=== PATIENT | male | born 1965 | race Caucasian/White ===

== ENCOUNTER 2016-08-24 12:33 | Day surgery (SDC) | payer OTHER ==
[~2016-08-24] VITALS: Ht 182.9 cm; Wt 81.0 kg
[2016-08-24 13:31] VITALS: Ht 182.9 cm; Wt 81.0 kg
[2016-08-24] MEDS ORDERED: OMEPRAZOLE (13:35)
[2016-08-24 13:41] VITALS: BP 109/70; PULSE 60; RESP 15
[2016-08-24] MEDS ORDERED: LIDOCAINE 4% SOLUTION 50 ML BTL ONE (13:46)
[2016-08-24 14:32] VITALS: BP 103/78; RESP 20
[2016-08-24] MEDS ORDERED: MIDAZOLAM 1 MG/ML 2 ML INJ ONE ×2 (15:24)
[2016-08-24] MEDS ORDERED: FENTAnyl 50 MCG/ML VIAL ONE (15:24)
--- NOTE | 2016-08-25 06:16 | GILP ---
DATE OF PROCEDURE: 08/24/2016 PREOPERATIVE DIAGNOSIS: Foreign body sensation in the throat with reflux symptoms. He had a fundop lication in the past. PROCEDURE DONE: Esophagogastroduodenoscopy and random biopsy of the stomach. POSTOPERATIVE DIAGNOSIS: Mild swelling near the arytenoid in the oropharyngeal area, but no other a bnormalities. Esophagus is essentially normal. No evidence of erosion, status post Martínez. Fundop lication is quite tight and normal, normally functioning, it looks like. Stomach normal, but biopsi es done. Duodenum is also normal. DESCRIPTION OF PROCEDURE: The patient was put in left lateral decubitus after obtaining informed co nsent and was sedated with 3 mg IV Versed, 75 mcg of fentanyl. Also, posterior pharynx anesthetized with 4% Xylocaine. Very carefully advanced an Olympus video upper endoscope into the esophagus, st omach, and duodenum. Examination of the oropharyngeal area, multiple pictures were taken. 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 Examination of the esophagus in its entire length from cricopharyngeus to the GE junction is normal. No erosion in the distal esophagus or ulcer. Unfortunately, I could not do the narrow band as the scope is old. Examination of the Martínez fundoplication by retroflexion, it looked normal. Surgery-norwood, it is sn ug and tight but not too tight. Fundus otherwise, other than surgical change due to fundoplication, no other abnormality. Random biopsies of the stomach were done in the body and antrum. These are normal actually. Examination of the duodenum is essentially normal. After multiple pictures of the oropharyngeal area also at the end done, my recommendation would be to ask him to see an ENT specia list for his foreign body sensation in the throat. Wait for random biopsy of the stomach. No need for any further evaluation of his fundoplication as it seems to be in order. I would recommend him not to take any PPI as it may not help the patient. Dictated By: SELIN AGUSTIN/ARIEL Conf#: [id number] DID#: [id number] CC: SELIN ESTES M.D.; Praneeth Shaw MD;*EndCC*
== END 2016-08-24 15:15 | disposition home or self-care (01) ==
LOC: GIL 12:33
PROVIDERS: ATTEND Internal Medicine
DX: K21.9 Gastro-esophageal reflux disease without esophagitis (principal)
CPT/HCPCS: 43239; 88305; 88312; J2250; J3010; Z7610